=== PATIENT | male | born 1980 | race Hispanic/Latino ===

== ENCOUNTER 2023-11-25 13:32 | Emergency (ER) | payer OTHER ==
[~2023-11-25] VITALS: Ht 167.6 cm; Wt 90.7 kg
[2023-11-25 14:16] VITALS: BP 162/82; PULSE 71; RESP 18
[2023-11-25] MEDS ORDERED: CLIN-141 PO (14:25)
[2023-11-25] MEDS ORDERED: CEFTRIAXONE 1G VIAL IM ONE (14:30)
== END 2023-11-25 15:04 | disposition home or self-care (01) ==
LOC: EDH 13:32
DX: L73.9 Follicular disorder, unspecified (principal)
CPT/HCPCS: 99283; 96372; J0696

== ENCOUNTER 2025-04-10 16:23 | Emergency (ER) | payer SELFPAY ==
[~2025-04-10] VITALS: Ht 165.1 cm; Wt 90.7 kg
[~2025-04-10 16:23] MED LIST: CLIN-141 PO
--- NOTE | 2025-04-10 16:52 | ERN ---
ED Note History of Present Illness Stated Complaint: LEFT SIDE CHEST PAIN, LEFT ARM NUMB Chief Complaint: Upper Extremity Pain/Injury Time Seen by MD: 16:23 Time Seen by Midlevel: 16:24 Dictation: 44-year-old male who presents to the emergency department due to reported having left-sided chest pain that began yesterday at 11:00 p.m.. Patient states that it has been intermittent but was persistent since 1 hour ago. He describes the pain as a pressure type of sensation which radiates to the left arm. At this time, he rates the discomfort level as a 4/10. He denies having any known cardiac history. Patient states that the pain is not reproducible. Upon initial evaluation, the patient presents anxious looking. He admits to having a history of the left rotator cuff injury and does not know whether or not this might be related to it. Allergies: Coded Allergies: No Known Drug Allergies (Unverified Allergy, Unknown, 11/25/23) Emergency Care [employer]: None Home Meds Active Scripts Clindamycin HCl (Clindamycin HCl) 300 Mg Capsule, 1 CAP PO QID for 10 Days, #40 CAP 0 Refills Prov:CRUZ LUBIN HEART NURSE 11/25/23 Past Medical History Past Medical History: No Pertinent History Surgical History: None PSYCH History: no pertinent psych hx RN Note Reviewed/Agreed w/PFSH: Yes Review of System Dictation Cardiovascular: Chest pain Initial Vital Sign VS Vital Signs Date Time Temp Pulse Resp B/P (MAP) Pulse Ox O2 Delivery O2 Flow Rate FiO2 04/10/25 16:42 98.2 70 16 128/76 98 Room Air 0 04/10/25 17:20 21 Physical Exam Dictation General: awake, alert, NAD Head/Face: Normocephalic, atraumatic Eyes: PERRL, EOMI ENT: Oral mucosa moist Neck: Trachea midline, supple Cardiovascular: RRR, no edema Respiratory: Symmetrical, non-labored Abdomen: Soft, non-tender, non-distended, no guarding. Skin: Warm, dry, good turgor, no rash MS/Extremity: Pulses equal, no cyanosis, neurovascular intact, FROM Neuro: COAx4, GCS 15, steady gait, Psych: Normal behavior, mood, and affect normal Results (Laboratory/Radiology) Laboratory/Radiology Laboratory Tests Test 04/10/25 16:53 04/10/25 18:29 White Blood Count 7.4 K/uL (4.8-10.8) Red Blood Count 5.25 MIL/uL (4.50-6.20) Hemoglobin 16.4 g/dL (14.0-18.0) Hematocrit 45.8 % (42-54) Mean Corpuscular Volume 87.2 fL (79-99) Mean Corpuscular Hemoglobin 31.2 pg (27.0-33.0) Mean Corpuscular Hemoglobin Concent 35.8 g/dL (32.0-36.0) Red Cell Distribution Width 12.7 % (11.0-15.5) Platelet Count 271 K/uL (130-400) Mean Platelet Volume 9.4 fL (7.5-10.5) Immature Granulocyte % (Auto) 0.3 % (0-1) Neutrophils (%) (Auto) 47.7 % (40.0-77.0) Lymphocytes (%) (Auto) 41.9 % (21.0-51.0) Monocytes (%) (Auto) 7.4 % (3.0-13.0) Eosinophils (%) (Auto) 1.9 % (0.0-8.0) Basophils (%) (Auto) 0.8 % (0.0-5.0) Neutrophils # (Auto) 3.6 K/uL (1.8-7.7) Lymphocytes # (Auto) 3.1 K/uL (1.0-4.8) Monocytes # (Auto) 0.6 K/uL (0.1-1.0) Eosinophils # (Auto) 0.14 K/uL (0.00-0.70) Basophils # (Auto) 0.06 K/uL (0.00-0.20) Absolute Immature Granulocyte (auto 0.02 K/uL (0-1) Nucleated Red Blood Cells 0.0 % (0.0-0.19) Sodium Level 137 mmol/L (136-145) Potassium Level 4.2 mmol/L (3.5-5.1) Chloride Level 104 mmol/L (101-111) Carbon Dioxide Level 19 mmol/L (21-32) L Blood Urea Nitrogen 14 mg/dL (7-18) Creatinine 1.0 mg/dL (0.5-1.3) Glomerular Filtration Rate Calc 95 mL/min (>90) Random Glucose 154 mg/dL (70-105) H Total Calcium 8.2 mg/dL (8.5-10.1) L Total Bilirubin 0.5 mg/dL (0.2-1.0) Aspartate Amino Transf (AST/SGOT) 35 U/L (10-37) Alanine Aminotransferase (ALT/SGPT) 64 U/L (12-78) Alkaline Phosphatase 102 U/L (50-136) Troponin I High Sensitivity 4 ng/L (4-75) < 4 ng/L (4-75) L Total Protein 7.4 g/dL (6.0-8.3) Albumin 3.7 g/dL (3.5-5.0) Labs Reviewed?: Yes EKG Comment: EKG done 04/10/2025 at 4:54 p.m. Ventricular rate 72 beats per minute PA 147 MS QRS 100 MS QT 380 MS No STEMI. X-RAY Comment: Chest x-ray one view with no infiltrates and a normal-appearing cardiac silhouette as interpreted by me. ED Course ED Course Orders Procedure Category Date Status Time Troponin I High LAB 04/10/25 Complete Sensitivity 16:45 Cbc With Differential LAB 04/10/25 Complete 16:45 Comprehensive LAB 04/10/25 Complete Metabolic Panel 16:45 Urinalysis Profile LAB 04/10/25 Logged 16:45 Saline Lock Iv CPOE 04/10/25 Transmitted 16:45 Chest 1vw RAD 04/10/25 Resulted 16:45 Drug Screen Urine LAB 04/10/25 Logged 16:45 12 Lead Ekg Tracing- EKG 04/10/25 Complete Technical 16:47 Aspirin 81mg Chew Tab PHA 04/10/25 Complete (Aspirin 81mg Chew 17:30 Troponin I High LAB 04/10/25 Complete Sensitivity 18:23 Current Medications Medications (Trade) Dose Ordered Sig/Saul Route PRN Reason Start Time Stop Time Status Last Admin Dose Admin Aspirin (Aspirin 81mg Chew Tab) 324 mg ONCE ONCE PO 04/10/25 17:30 04/10/25 17:31 DC 04/10/25 17:41 Vital Signs Date Time Temp Pulse Resp B/P (MAP) Pulse Ox O2 Delivery O2 Flow Rate FiO2 04/10/25 17:20 98.4 69 20 123/69 98 Room Air* 0 21 6/5/25 16:42 98.2 70 16 128/76 98 Room Air 0 HEART Score Response (Comments) Value History: Low suspicion (0) 0 EKG: Normal 0 Age: < 45yrs (0) 0 Risk Factors: No known risk factors (0) 0 Initial Troponin: Normal limit (0) 0 HEART Score Risk: Low Risk for MACE (1-3) Total 0 Medical Decision Making MDM MDM: Differential diagnosis: Chest pain, angina, STEMI, non STEMI. Rationale: Tests considered and ordered secondary to shared decision making include: Previous outside records reviewed: Old ER visits. Risk of complication and/or morbidity or mortality of patient management: None Medications-Per medication reconciliation Need for hospitalization: Patient does not meet criteria for hospitalization. Need for emergency major/minor surgery: No Heart score. There are no social concerns with this patient. Prescription drug management Prescriptions will include symptomatic care Patient's prior external medical records from other ER visits were reviewed by me as indicated. Prior testing and results from previous visits were reviewed. Prior tests were taken into account with medical decision making and resource utilization, independent historian/historians were used to obtain complete medical history. I independently interpreted the test that were performed, results were reviewed by me and considered findings on radiology if ordered. Medical management and examination interpretation discussions were had by me with other qualified healthcare professionals as indicated for the patient's c are. DX & DISP Disposition: Discharge Departure Impression: Primary Impression: Chest pain Condition: Stable Referrals: SELF,REFERRAL (PCP) UMER ZIEGLER Apr 10, 2025 16:52
--- NOTE | 2025-04-10 16:57 | EKG ---
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
[2025-04-10 17:03] LABS: BASOPHILS # (AUTO) 0.06 K/uL (0.00-0.20); BASOPHILS % (AUTO) 0.8 % (0.0-5.0); EOSINOPHILS # (AUTO) 0.14 K/uL (0.00-0.70); EOSINOPHILS % (AUTO) 1.9 % (0.0-8.0); HEMATOCRIT 45.8 % (42-54); IMMATURE GRANULOCYTE ABSOLUTE 0.02 K/uL (0-1); LYMPHOCYTES # (AUTO) 3.1 K/uL (1.0-4.8); LYMPHOCYTES % (AUTO) 41.9 % (21.0-51.0); MEAN CORPUSCULAR HEMOGLOBIN 31.2 pg (27.0-33.0); MEAN CORPUSCULAR HGB CONC 35.8 g/dL (32.0-36.0); MEAN CORPUSCULAR VOLUME 87.2 fL (79-99); MONOCYTES # (AUTO) 0.6 K/uL (0.1-1.0); MONOCYTES % (AUTO) 7.4 % (3.0-13.0); NEUTROPHILS # (AUTO) 3.6 K/uL (1.8-7.7); NEUTROPHILS % (AUTO) 47.7 % (40.0-77.0); PLATELET COUNT (AUTO) 271 K/uL (130-400); RED BLOOD CELL COUNT(AUTO) 5.25 MIL/uL (4.50-6.20); RED CELL DISTRIBUTION WIDTH 12.7 % (11.0-15.5); WHITE BLOOD COUNT (AUTO) 7.4 K/uL (4.8-10.8)
[2025-04-10 17:09] LABS: POTASSIUM 4.2 mmol/L (3.5-5.1)
[2025-04-10 17:19] LABS: ALBUMIN 3.7 g/dL (3.5-5.0); BILIRUBIN,TOTAL 0.5 mg/dL (0.2-1.0); TOTAL PROTEIN, SERUM 7.4 g/dL (6.0-8.3)
[2025-04-10] MEDS: ASPIRIN 81MG CHEW TAB PO ONE (17:41)
--- NOTE | 2025-04-10 17:57 | HMCIMG ---
CHEST 1VW REASON: pain COMPARISON: None. FINDINGS: Single view of the chest was obtained. Lungs are clear. Heart size is normal. There is no pulmonary vascular congestion. Mediastinum and bony thorax appear unremarkable. IMPRESSION: 1. Normal single view chest x-ray.
[2025-04-10 19:28] VITALS: BP 140/88; PULSE 73; RESP 18; TEMP 98.5; O2SAT 98
== END 2025-04-10 19:33 | disposition home or self-care (01) ==
LOC: EDH 16:23
DX: R07.89 Other chest pain (principal); Z79.899 Other long term (current) drug therapy
CPT/HCPCS: 36415; 71045; 80053; 84484; 85025; 93005; 99285